=== PATIENT | male | born 1985 | race Two or more races ===

== ENCOUNTER 2024-06-20 00:09 | Emergency (ER) | payer MEDICAID ==
[~2024-06-20] VITALS: Ht 175.3 cm; Wt 81.8 kg
--- NOTE | 2024-06-20 00:33 | ED.PDOC ---
Eye-HPI HPI Comments 38-year-old male came to ER for eye problems. Patient's for the past 2 days, has been experiencing left eye pruritus, and irritation, redness and discharge. Denies any fever or blurring of vision. no trauma or contact lenses use Chief Complaint: Eye Problem Time Seen by MD: 00:32 Reviewed Notes: Nurses Notes Allergies: Coded Allergies: NO KNOWN ALLERGIES (Unverified , 06/20/24) Information Source: Patient Mode of Arrival: Ambulatory Timing: Hours Duration: Intermittent Quality: Pain, Red Eye Location: Left Conjunctiva: Injection Onset: Spontaneous Associated signs and symptoms: Discharge Past Medical History PAST MEDICAL HISTORY: Denies Surgical History: Denies all surgeries Family History Family History: Reviewed,noncontributory to illness Social History Smoker: Non-Smoker Alcohol: Denies ETOH Use Drugs: Denies Drug Use Lives In: Home Constitutional: denies: chills, diaphoresis, fatigue, fever, malaise, sweats, weakness, others EENTM: reports: eye pain, eye redness; denies: blurred vision, double vision, ear bleeding, ear discharge, ear drainage, ear pain, ear ringing, hearing loss, mouth pain, mouth swelling, nasal discharge, nose bleeding, nose congestion, nose pain, photophobia, tearing, throat pain, throat swelling, voice changes, others Respiratory: denies: cough, hemoptysis, orthopnea, SOB at rest, shortness of breath, SOB with excertion, stridor, wheezing, others Cardiovascular: denies: chest pain, dizzy spells, diaphoresis, Dyspnea on exertion, edema, irregular heart beat, left arm pain, lightheadedness, palpitations, PND, syncope, others Gastrointestinal: denies: abdomen distended, abdominal pain, blood streaked bowels, constipated, diarrhea, dysphagia, difficulty swallowing, hematemesis, melena, nausea, poor appetite, poor fluid intake, rectal bleeding, rectal pain, vomiting, others Genitourinary: denies: burning, dysuria, flank pain, frequency, hematuria, incontinence, penile discharge, penile sore, pain, testicle pain, testicle swelling, urgency, others Neurological: denies: dizziness, fainting, headache, left sided numbness, left sided weakness, numbness, paresthesia, pre-existing deficit, right sided numbness, right sided weakness, seizure, speech problems, tingling, tremors, weakness, others Musculoskeletal: denies: back pain, gout, joint pain, joint swelling, muscle pain, muscle stiffness, neck pain, others Integumetry: denies: bruises, change in color, change in hair/nails, dryness, laceration, lesions, lumps, rash, wounds, others Allergic/Immunocompromised: denies: Difficulty Healing, Frequent Infections, Hives, Itching, others Hematologic/Lymphatic: denies: anemia, blood clots, easy bleeding, easy bruising, swollen glands, others Endocrine: denies: excessive hunger, excessive sweating, excessive thirst, excessive urination, flushing, intolerance to cold, intolerance to heat, unexplained weight gain, unexplained weight loss, others Psychiatric: denies: anxiety, bipolar disorder, depression, hopeless, panic disorder, schizophrenia, sleepless, suicidal, others Physical Exam General Appearance: No Apparent Distress, Normal HEENT: Pale Conjuntivae (L) (Conjunctival redness), Pharynx Normal, TMs Normal Neck: Full Range of Motion, Non-Tender, Normal, Normal Inspection Respiratory: Chest Non-Tender, Lungs Clear, No Accessory Muscle Use, No Respiratory Distress, Normal Breath Sounds Cardiovascular: No Edema, No JVD, No Murmur, No Gallop, Normal Peripheral Pulses, Regular Rate/Rhythm Breast Exam: Deferred Gastrointestinal: No Organomegaly, Non Tender, No Pulsatile Mass, Normal Bowel Sounds, Soft Genitalia: Deferred Pelvic: Deferred Rectal: Deferred Extremities: No calf tenderness, Normal capillary refill, Normal inspection, Normal range of motion, Non-tender, No pedal edema Musculoskeletal : Apperance: Normal Neurologic: Alert, 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 Was a procedure done?: No EENT DIFF Eye: Conjunctivitis, Allergic, Bacterial, Chlamydial, Viral, Corneal Abrasion, Corneal Ulceration, Foreign Body-Conjunctiva, Foreign Body-Corneal, Glaucoma, Iritis/Uveitis, Retinal Artery Occlusion, Retinal Vein Occlusion, Subconjunctival Hemorrhag, Ultraviolet Keratitis, Other Ear: N/A Nose: N/A Mouth: N/A Sore Throat: N/A X-Ray, Labs, Meds, VS Vital Signs Date Time Temp Pulse Resp B/P (MAP) Pulse Ox O2 Delivery O2 Flow Rate FiO2 06/20/24 00:18 98.0 96 19 139/104 (116) 96 98.0 Time of 1ST Reevaluation: 00:23 Reevaluation 1ST: Unchanged Patient Education/Counseling: Diagnosis, Treatment, Prognosis, Need For Follow Up Family Education/Counseling: No Family Present Additional Information I discussed treatment and results with medical personnel and: Patient Comprehensive systems review obtained and negative except for what is stated in the HPI. pt understands that after starting the medication, if not better by noon, to see an document control associate Departure 1 Departure Time of Disposition: 00:39 Impression: Primary Impression: Iritis Disposition: 01 HOME / SELF CARE / HOMELESS Condition: Stable e-Prescriptions Diclofenac Sodium (Ophth) (Diclofenac Sodium) 0.1 % Emily 0.1 % OP Q4HP PRN for 3 Days, #1 EA Prov: ELISABETH BOYD MD 06/20/24 Cyclopentolate Hcl (Cyclopentolate Hcl) 1 % Emily 1 % OP Q12HP PRN for 3 Days, #1 EA Prov: ELISABETH BOYD MD 06/20/24 Discharged With: Self Critical Care Note Critical Care Time?: No Stability Stability form required: No Heart Score Heart Score: Heart Score Response (Comments) Value History N/A 0 EKG N/A 0 Age N/A 0 Risk Factors N/A 0 Troponin N/A 0 Total 0 I personally scribed for ELISABETH BOYD MD ([email or web address]) on 06/20/24 at 00:33. Elec tronically submitted by Abiel Hall (SUSAN). I personally scribed for ELISABETH BOYD MD ([email or web address]) on 06/20/24 at 00:34. E lectronically submitted by Abiel Hall (SUSAN). ELISABETH BOYD MD Jun 20, 2024 00:33
[2024-06-20] MEDS ORDERED: CYCL1SOL20 OP (00:41)
[2024-06-20] MEDS ORDERED: DICL0.1S20 OP (00:41)
[2024-06-20 00:45] VITALS: BP 135/87; PULSE 87; RESP 18; TEMP 98; O2SAT 98
== END 2024-06-20 01:21 | disposition home or self-care (01) ==
LOC: ER 00:09
DX: H20.9 Unspecified iridocyclitis (principal)